=== PATIENT | female | born 1960 | race Asian ===

== ENCOUNTER 2023-04-01 07:08 | Day surgery (SDC) | payer OTHER ==
[~2023-04-01] VITALS: Ht 160 cm; Wt 67.6 kg
[2023-04-01] MEDS ORDERED: MEPERIDINE 100 MG INJ. 100 MG/ML VIAL ONE (07:41)
[2023-04-01] MEDS ORDERED: MIDAZOLAM HCL 5 MG/5 ML VIAL ONE (07:41)
[2023-04-01] MEDS ORDERED: SIMETHICONE 40 MG/0.6 ML ML ONE (07:42)
[2023-04-01 12:03] VITALS: O2SAT 98
[2023-04-01 13:01] VITALS: BP_SYST 131; PULSE 78; RESP 16
== END 2023-04-01 09:28 | disposition home or self-care (01) ==
LOC: SDS 07:08 → SMU 07:10 → SDS 09:28
PROVIDERS: ATTEND Student in an Organized Health Care Education/Training Program
DX: K59.09 Other constipation (principal); K63.5 Polyp of colon; K62.1 Rectal polyp; K57.30 Diverticulosis of large intestine without perforation or abscess without bleeding; K64.8 Other hemorrhoids; E11.9 Type 2 diabetes mellitus without complications; E78.5 Hyperlipidemia, unspecified; Z90.710 Acquired absence of both cervix and uterus; Z79.899 Other long term (current) drug therapy
CPT/HCPCS: 45380; 99152; 82962; 88305; G0378; J2250; J2175